=== PATIENT | male | born 1935 | race Caucasian/White ===

== ENCOUNTER 2022-07-24 02:02 | Outpatient (CLI) | payer MEDICARE, BC, SELFPAY | END 2022-07-24 02:03 | disposition home or self-care (01) | LOC: AMB 23:47 | PROVIDERS: PCP Surgery; Visit Provider Family Medicine | DX: L76.22 Postprocedural hemorrhage of skin and subcutaneous tissue following other procedure (principal) | CPT/HCPCS: A0425; A0427 ==

== ENCOUNTER 2022-07-24 02:33 | Emergency (ER) | payer MEDICARE, BC, SELFPAY ==
[2022-07-24 03:15] VITALS: BP 145/77
[2022-07-24 03:19] VITALS: BP 148/94; RESP 20; TEMP 36.2; BMI 23.3
[2022-07-24 03:20] VITALS: BP 154/66; PULSE 76; RESP 16; O2SAT 98
[2022-07-24 03:40] VITALS: BP 158/74; PULSE 80; RESP 16; O2SAT 98
--- NOTE | 2022-07-24 03:52 | ED.WOUNDLAC ---
HPI - Wound/Laceration General Chief Complaint: Laceration/Wound Stated Complaint: Bleeding Time Seen by Provider: 07/24/22 03:16 Source: patient and EMS Mode of arrival: EMS History of Present Illness HPI narrative: Patient underwent skin cancer resection less than 24 hours ago, called EMS due to severe bleeding. Patient is anticoagulated on Coumadin. Wound is on his back, pumping large amounts of blood. Soaking through the dressing, EMS not able to get bleeding contained at the scene. He did not note any dizziness, lightheadedness or chest pain. No new falls, trauma or injury. Past medical history, surgical history, meds and allergies are reviewed from EMR. Surgery was done at [facility] per his report. He does have some paperwork from the surgeon. Socially lives independently with no assistive devices. No intoxication. ROS is negative for other generalized, hematological, musculoskeletal or skin concerns today Related Data Home Medications Medication Instructions Recorded Confirmed allopurinol 100 mg tablet mg 07/24/22 atorvastatin 40 mg tablet mg 07/24/22 glipizide 10 mg tablet, extended mg PO 07/24/22 release 24 hr hydrochlorothiazide 12.5 mg tablet mg 07/24/22 lisinopril 20 mg tablet mg 07/24/22 metformin 1,000 mg tablet mg 07/24/22 metoprolol succinate 25 mg mg PO 07/24/22 tablet,extended release 24 hr warfarin 3 mg tablet mg 07/24/22 Previous Rx's Medication Instructions Recorded cephalexin 500 mg capsule 500 mg PO Q8H #21 caps 07/24/22 Allergies Allergy/AdvReac Type Severity Reaction Status Date / Time No Known Drug Allergies Allergy Verified 07/24/22 03:29 PFSH PFS Social History Smoking Status: Never smoker Do you use any of these nicotine containing products: None Second hand tobacco smoke exposure: No How often do you have a drink containing alcohol: never AUDIT-C Alcohol total score: 0 Non-prescribed substance use: denies use service: No Exam Const: Vital Signs, click to edit/add: Vital Signs - 24 hr 07/24/22 03:19 07/24/22 03:38 Temperature 97.2 F L Respiratory Rate 20 20 Blood Pressure [Le ft Forearm] 148/94 H 142/93 H Oxygen Delivery Me thod Room Air Room Air Common normals: no apparent distress General appearance: cooperative Other: Significant bleeding, active noted from right upper back. Okay the dressings, normal mental status with no pallor. HENMT: Common normals: normocephalic and head/scalp atraumatic Head and scalp: normocephalic and atraumatic Resp: Common normals: normal respiratory effort and clear to auscultation bilaterally Effort & inspection: able to speak in complete sentences Auscultation: clear to auscultation bilaterally Cardio: Common normals: regular rate, regular rhythm and peripheral pulses 2+ throughout Rate: regular rate Rhythm: regular rhythm Peripheral pulses: pulses 2+ throughout Back & Pelvis: Other: 8 cm wide by a 12 cm long bandages covering right scapular border. These are completely soaked and there is warm blood draining down these are removed as we attempt to locate the source of the bleeding. It is quickly found along the 8 cm linear surgical incision. It is located at about the 3 cm tanya from the left upper aspect. We applied direct pressure while we planned our mode of repair. There is significant underlying hematoma as well. Extremity: Common normals: normal capillary refill Neuro: Motor exam: no movement abnormalities noted Psych: Attitude: engaged Mood and affect: euthymic mood Judgement: judgment good Skin: Narrative: Other than the bleeding surgical incision on the right scapula, no other areas of injury, bruising or abnormality noted. Course Vital Signs Vital signs: Initial Vital Signs Temperature 97.2 F L 07/24/22 03:19 Temperature Source Temporal Artery Scan 07/24/22 03:19 Pulse Rhythm 07/24/22 03:19 Respiratory Rate 20 07/24/22 03:19 Blood Pressure 148/94 H 07/24/22 03:19 Blood Pressure Mean 112 07/24/22 03:19 Blood Pressure Position Standing 07/24/22 03:19 Oxygen Delivery Method 07/24/22 03:19 Vital Signs Temperature 97.2 F L 07/24/22 03:19 Respiratory Rate 20 07/24/22 03:19 Blood Pressure 148/94 H 07/24/22 03:19 Oxygen Delivery Method 07/24/22 03:19 Temperature 97.2 F L 07/24/22 03:19 Respiratory Rate 20 07/24/22 03:38 Blood Pressure 142/93 H 07/24/22 03:38 Oxygen Delivery Method 07/24/22 03:38 MDM - Wound/Laceration MDM Narrative Medical decision making narrative: Procedure: Control of surgical bleeding: Total critical care time 45 minutes: Within about 5 minutes, we were able to low localize the area of bleeding to about 3 cm from the left side of the surgical incision on the right upper scapula border. It appears arterial with a pulse of lluvia shooting nature, small-vessel. Area around the wound was injected with 3 mL of 1% lidocaine for anesthesia and then using 0 0 nylon suture, with some difficulty, 2 [id number] stitches were placed over the area of bleeding with good hemostasis. A 3rd stitch with 3-0 nylon was then placed specifically over the arterial spot for further reinforcement. This was watched for about 10 minutes with no expansion of the hematoma or further signs of bleeding, was gently cleansed and then covered with a pressure dressing and an Tor bandage around the chest and observed for 1 hour. Recheck: 430: No signs of rebleeding. Back was extensively cleansed, no expanding hematoma. Steri-Strips were reapplied similarly to how the surgeon had originally dressed the wound. ABD and tape were applied. Tor wrap reapplied. Discussed risks and benefits of antibiotics with patient, I am sensing some cognitive impairment, this will be a difficult area for him to monitor over the weekend. Benefit of antibiotic outweighs risk. Wound care and follow-up planned extensively discussed and written for patient. Discharge Plan Discharge Clinical Impression: Surgical complication Patient Disposition: Home w/ Parent or Adult Condition: Improved Instructions: Postoperative Bleeding (ED) Additional Instructions: The bleeding occurred from an artery about 3 cm from the left edge of your surgical incision. This looks like a small artery had come loose from its stitch and was causing sudden active bleeding. Were able to get a few large, quick figure of 8 stitches into area of bleeding and this worked well to control things. There is some bleeding underneath the incision, a small hematoma. We applied a pressure dressing and an Tro wrap around your chest to keep this from expanding. When we recheck done things after an hour, there were no signs of rebleeding. The extra stitches will need to be removed in the surgeon's office, not at home. Because of the hematoma, your wound is at increased risk of infection. I would like to start you on Keflex and have you make an appointment early next week with your surgeon to recheck things. Call her office 1st thing in the morning and tell her that you had an arterial bleeding complication, additional stitches needed to be placed and you are advised to have this rechecked. Let her know that we did start antibiotics. I would like for you to leave our dressing in place for 48 hours. Try to wear the Tor bandage or at least 8 hours. We discussed that since you want to go to a wake this afternoon, it would be best if you took the Tor wrap off after the wake. You may continue taking your Coumadin and all other medications as prescribed. Please come back to the emergency department if bleeding restarts. No strenuous activity for the next 48 hours, then you may resume all typical activity. Activity Level: Activity as Tolerated Discharge Diet: Regular Prescriptions: New cephalexin 500 mg capsule 500 mg PO Q8H Qty: 21 0RF No Action atorvastatin 40 mg tablet Label Comments: TAKE ONE TABLET BY MOUTH ONE TIME DAILY with evening meal. glipizide 10 mg tablet extended release 24hr PO Label Comments: TAKE ONE TABLET BY MOUTH TWICE DAILY WITH MEALS lisinopril 20 mg tablet Label Comments: TAKE ONE TABLET BY MOUTH ONE TIME DAILY allopurinol 100 mg tablet Label Comments: TAKE ONE TABLET BY MOUTH ONE TIME DAILY warfarin 3 mg tablet Label Comments: TAKE TWO TABLETS (6MG) BY MOUTH DAILY IN THE EVENING OR DIRECTED. metformin 1,000 mg tablet Label Comments: TAKE 1.5 TABLETS BY MOUTH EACH MORNING AND 1 TABLET IN THE EVENING. metoprolol succinate 25 mg tablet extended release 24 hr PO Label Comments: TAKE ONE TABLET BY MOUTH ONE TIME DAILY hydrochlorothiazide 12.5 mg tablet Label Comments: TAKE ONE TABLET BY MOUTH ONE TIME DAILY Follow Up/Referrals: Facundo Norman MD [Primary Care Provider] - Stand Alone [facility] Inst[facility]
[2022-07-24 04:00] VITALS: BP 156/75; PULSE 73; RESP 16; O2SAT 97
[2022-07-24 04:40] VITALS: BP 166/75; PULSE 78; RESP 16; O2SAT 96
[2022-07-24] MEDS: cephALEXin 500 MG CAPSULE PO (04:46)
== END 2022-07-24 05:07 | disposition home or self-care (01) ==
PROVIDERS: Emergency Provider Family Medicine; PCP Surgery
DX: L76.21 Postprocedural hemorrhage of skin and subcutaneous tissue following a dermatologic procedure (principal)
CPT/HCPCS: 12002; 99282; 99283; 99291; A9270

== ENCOUNTER 2024-07-29 10:42 | Emergency (ER) | payer MEDICARE, BC, SELFPAY ==
[2024-07-29] VITALS (12 sets, daily range): BP systolic 113–145; BP diastolic 71–88; PULSE 70–91; RESP 18; TEMP 36.3; O2SAT 80–99; BMI 20.9
--- NOTE | 2024-07-29 11:03 | ED.SOB ---
HPI - SOB/Dyspnea General Time Seen by Provider: 11:03 Date Seen: 07/29/24 Chief Complaint: Shortness of Breath/Dyspnea Stated Complaint: SOB, chest tightness Time Seen by Provider: 07/29/24 11:00 Source: patient, family, RN notes reviewed and old records reviewed Mode of arrival: ambulatory Limitations: no limitations History of Present Illness HPI Narrative: 88-year-old male who comes in today with complaints of cough, runny nose, dry throat, occasional shortness of breath with exertion. He denies chest pain, nausea, vomiting, did have a couple of days of diarrhea but that is resolved, no abdominal pain. No swelling in the legs. Symptoms been going on for about a week. Related Data Home Medications ?Medication ?Instructions ?Recorded ?Confirmed allopurinol 100 mg tablet mg 07/24/22 05/02/24 atorvastatin 40 mg tablet mg 07/24/22 05/02/24 glipizide 10 mg tablet, extended mg PO 07/24/22 05/02/24 release 24 hr hydrochlorothiazide 12.5 mg tablet mg 07/24/22 05/02/24 lisinopril 20 mg tablet mg 07/24/22 05/02/24 metformin 1,000 mg tablet mg 07/24/22 05/02/24 metoprolol succinate 25 mg mg PO 07/24/22 05/02/24 tablet,extended release 24 hr warfarin 3 mg tablet mg 07/24/22 05/02/24 dapagliflozin propanediol 10 mg 10 mg PO DAILY 07/29/24 07/29/24 tablet (Farxiga) sitagliptin phosphate 100 mg 100 mg PO DAILY 07/29/24 07/29/24 tablet (Januvia) Previous Rx's ?Medication ?Instructions ?Recorded azithromycin 250 mg tablet 250 mg PO DAILY 4 days #4 tabs 07/29/24 cefpodoxime 200 mg tablet 200 mg PO BID #14 tabs 07/29/24 Allergies Allergy/AdvReac Type Severity Reaction Status Date / Time No Known Drug Allergies Allergy Verified 05/02/24 10:16 [facility] Medical History Skin cancer ?C44.90 - Unspecified malignant neoplasm of skin, unspecified (ICD-10) Postoperative external wound disruption ?T81.31XA - Disruption of external operation (surgical) wound, not elsewhere classified, initial encounter (ICD-10) Social History (Updated 08/18/22 @ 13:29 by Charlotte Chamberlain ~ [facility], [facility]) Narrative: former chewing tobacco user Smoking Status: Never smoker Do you use any of these nicotine containing products: None Second hand tobacco smoke exposure: No How often do you have a drink containing alcohol: never AUDIT-C Alcohol total score: 0 Non-prescribed substance use: denies use service: No Exam Narrative: Exam Narrative: General: Well-developed and well-nourished, no acute distress Head: Atraumatic and normocephalic Eyes: Pupils are equal reactive, extraocular motions intact, conjunctiva clear ENT: External nose and ears are normal, posterior pharynx without erythema or exudate Neck: No midline cervical tenderness, full spontaneous range of motion the neck, trachea midline, no adenopathy Heart: Regular rate and irregular rhythm, 3/6 murmur Lungs: Crackles on the left Abdomen: Soft, nontender, nondistended with active bowel sounds Musculoskeletal: No tenderness, deformity, or edema Neurologic: Awake, alert, and oriented x3, no gross focal neurologic deficits, cranial nerves intact as tested Psych: Mood and affect are appropriate Skin: No rashes Const: Vital Signs, click to edit/add: Vital Signs - 24 hr 07/29/24 10:51 07/29/24 11:04 07/29/24 11:05 Temperature 97.4 F L Pulse Rate 82 Pulse Rate [Pulse Oximeter] 83 Respiratory Rate 18 Blood Pressure 126/76 Blood Pressure [Le ft Upper Arm] 145/84 H Pulse Oximetry 95 95 Oxygen Delivery Me thod Room Air 07/29/24 11:15 07/29/24 11:30 07/29/24 11:32 Temperature Pulse Rate 86 91 87 Pulse Rate [Pulse Oximeter] Respiratory Rate Blood Pressure 113/71 Blood Pressure [Le ft Upper Arm] Pulse Oximetry 92 80 L 92 Oxygen Delivery Me thod Course Course ED Course: Reviewed prior primary care visit from May 2024 which was follow-up for diabetes, at that time hemoglobin A1c is 8.6, also noted patient has hypertension and continued on hydrochlorothiazide, lisinopril, and metoprolol. Patient presents today with main complaint of dry throat, but also notes cough, nasal congestion, little bit shortness of breath with exertion. No fevers, no known ill contacts. No leg swelling. On exam here, patient is likely stable with no hypoxia, no respiratory distress, trace crackles particularly on the left. Consider viral process, pneumonia, pulmonary edema. Labs and x-ray are ordered. Reevaluation(s) Time of Reevaluation #1: 11:56 Reevaluation #1: Labs ordered and independently interpreted by me as normal CBC, hemoglobin 9.1, this is decreased from his usual level of 13 in October of last year. Chest x-ray independently interpreted by me with question of some perihilar fullness on the left, right lung is clear, no prior for comparison. Lungs appear slightly hyperinflated EKG independently interpreted by me performed at 11:04 a.m. demonstrates sinus rhythm although computer interpretation indicates atrial flutter, rate 87, occasional PVCs, normal axis, QTC 435. No change from prior of August 2023 Time of Reevaluation #2: 12:06 Reevaluation #2: Labs independently interpreted by me with negative respiratory panel, magnesium slightly low at 1.4, basic metabolic panel with normal potassium, normal creatinine, glucose 436. Time of Reevaluation #3: 12:34 Reevaluation #3: CT scan of the chest independently interpreted by me demonstrates left lower lobe consolidation consistent with clinical exam crackles in this area and finding of pneumonia. Patient will be started on Rocephin and azithromycin the emergency department and discharged with cefpodoxime and azithromycin, follow-up with primary care. Updated patient and sister with findings and plan. Vital Signs Vital signs: Initial Vital Signs Temperature 97.4 F L 07/29/24 10:51 Temperature Source Temporal Artery Scan 07/29/24 10:51 Pulse Rate 83 07/29/24 10:51 Respiratory Rate 18 07/29/24 10:51 Blood Pressure 145/84 H 07/29/24 10:51 Blood Pressure Mean 104 07/29/24 10:51 Blood Pressure Position Supine 07/29/24 10:51 Pulse Oximetry 95 07/29/24 10:51 Oxygen Delivery Method Room Air 07/29/24 10:51 Vital Signs Temperature 97.4 F L 07/29/24 10:51 Pulse Rate 83 07/29/24 10:51 Respiratory Rate 18 07/29/24 10:51 Blood Pressure 145/84 H 07/29/24 10:51 Pulse Oximetry 95 07/29/24 10:51 Oxygen Delivery Method Room Air 07/29/24 10:51 Temperature 97.4 F L 07/29/24 10:51 Pulse Rate 87 07/29/24 11:32 Respiratory Rate 18 07/29/24 10:51 Blood Pressure 113/71 07/29/24 11:32 Pulse Oximetry 92 07/29/24 11:32 Oxygen Delivery Method Room Air 07/29/24 10:51 MDM - SOB/Dyspnea Lab Data Labs: Lab Results 07/29/24 07/29/24 07/29/24 Range/Units 11:32 12:15 Unknown WBC 7.56 (4.50-11.00) K/uL RBC 2.78 L (4.30-5.90) m/uL Hgb 9.1 L (13.5-17.5) gm/dL Hct 27.1 L (37.0-53.0) % MCV 98 (80-100) fL MCH 33 (26-34) pg MCHC 34 (32-36) gm/dL RDW Coeff of Cindy 14.1 (11.5-15.5) % Plt Count 230 (140-440) K/uL Neut % (Auto) 74.4 H (42.0-72.0) % Lymph % (Auto) 12.8 L (20-44) % [place] % (Auto) 10.1 (0.0-11.0) % Eos % (Auto) 1.1 (0.0-7.0) % Baso % (Auto) 0.5 (0.0-3.0) % Neut # (Auto) 5.60 (1.7-7.0) K/uL Lymph # (Auto) 1.00 (0.90-2.90) K/uL [place] # (Auto) 0.80 (0.00-0.90) K/UL Eos # (Auto) 0.08 (0.00-0.50) K/uL Baso # (Auto) 0.04 (0.00-0.30) K/uL Abs Immat Gran (auto) 0.08 (0.00-0.30) K/uL Imm/Tot Granulo (auto) 1.1 % Sodium 130 L (135-149) mmol/L Potassium 4.0 (3.6-5.1) mmol/L Chloride 98 (96-114) mmol/L Carbon Dioxide 28 (20-32) mmol/L Anion Gap 4 L (7-15) mEq/L BUN 27 (7-30) mg/dL Creatinine 0.8 (0.5-1.5) mg/dL Estimated Creat Clear 49.14 Estimated GFR 85 ml/min Glucose 436 H* (60-115) mg/dL Calcium 8.3 L (8.4-10.6) mg/dL Magnesium 1.4 L (1.5-2.6) mg/dL NT-Pro-B Natriuret Pep 1390 pg/mL SARS-CoV-2 (PCR) Negative SARS-CoV-2 (Negative) Influenza Type A (PCR) Negative PCR FLU A (Negative) Influenza Type B (PCR) Negative PCR FLU B (Negative) RSV (PCR) Negative PCR RSV (Negative) Lab Acknowledgement Test Added Discharge Plan Discharge Clinical Impression: Community acquired pneumonia, Hyperglycemia due to type 2 diabetes mellitus Patient Disposition: Home w/ Parent or Adult Condition: Stable Instructions: Community Acquired Pneumonia (ED) Additional Instructions: Take antibiotics as prescribed starting tomorrow morning Follow-up with your primary care doctor in 7-10 days Activity Level: Activity as Tolerated Discharge Diet: Regular Prescriptions: New cefpodoxime 200 mg tablet 200 mg PO BID Qty: 14 0RF Rx Instructions: must administer with a meal/food azithromycin 250 mg tablet 250 mg PO DAILY 4 Days Qty: 4 0RF Rx Instructions: Start on July 30 No Action dapagliflozin propanediol [Farxiga] 10 mg tablet 10 mg PO DAILY Januvia 100 mg tablet 100 mg PO DAILY atorvastatin 40 mg tablet Patient Comments: TAKE ONE TABLET BY MOUTH ONE TIME DAILY with evening meal. glipizide 10 mg tablet extended release 24hr PO Patient Comments: TAKE ONE TABLET BY MOUTH TWICE DAILY WITH MEALS lisinopril 20 mg tablet Patient Comments: TAKE ONE TABLET BY MOUTH ONE TIME DAILY allopurinol 100 mg tablet Patient Comments: TAKE ONE TABLET BY MOUTH ONE TIME DAILY warfarin 3 mg tablet Patient Comments: TAKE TWO TABLETS (6MG) BY MOUTH DAILY IN THE EVENING OR DIRECTED. metformin 1,000 mg tablet Patient Comments: TAKE 1.5 TABLETS BY MOUTH EACH MORNING AND 1 TABLET IN THE EVENING. metoprolol succinate 25 mg tablet extended release 24 hr PO Patient Comments: TAKE ONE TABLET BY MOUTH ONE TIME DAILY hydrochlorothiazide 12.5 mg tablet Patient Comments: TAKE ONE TABLET BY MOUTH ONE TIME DAILY Follow Up/Referrals: Facundo Norman MD [Primary Care Provider] - Stand Alone Forms: [id number] Info Instructions
--- NOTE | 2024-07-29 11:18 | CRLHL7_ITS ---
For Patients: As a result of the Century Cures Act, medical imaging exams and procedure reports are released immediately into your electronic medical record. You may view this report before your referring provider. If you have questions, please contact your health care provider. INDICATION: Cough/dyspnea TECHNIQUE: Chest 2 views. COMPARISON: None. FINDINGS: Cardiovascular and mediastinum: Heart size is normal. Aorta is tortuous. Lungs and pleural spaces: No consolidation. No pneumothorax or pleural effusion. Bones and soft tissues: No significant findings. IMPRESSION: No consolidation. Dictated by Tabitha Seymour MD @ 07/29/2024 12:09:04 PM (Electronically Signed)
[2024-07-29 11:42] LABS: Basophils Absolute Auto 0.04 K/uL (0.00-0.30); Basophils Percent Auto 0.5 % (0.0-3.0); Eosinophils Absolute Auto 0.08 K/uL (0.00-0.50); Eosinophils Percent Auto 1.1 % (0.0-7.0); Hematocrit 27.1 % (37.0-53.0); Hemoglobin* 9.1 gm/dL (13.5-17.5); Immature Granulocytes Abs Auto 0.08 K/uL (0.00-0.30); Immature Granulocytes Pct Auto 1.1 %; Lymphocytes Percent Auto 12.8 % (20-44); Mean Corpuscular HGB Conc 34 gm/dL (32-36); Mean Corpuscular Hemoglobin 33 pg (26-34); Mean Corpuscular Volume 98 fL (80-100); Monocytes Percent Auto 10.1 % (0.0-11.0); Neutrophils Percent Auto 74.4 % (42.0-72.0); Platelet Count* 230 K/uL (140-440); RDW Coefficient of Variation % 14.1 % (11.5-15.5); Red Blood Count 2.78 m/uL (4.30-5.90); White Blood Count* 7.56 K/uL (4.50-11.00)
[2024-07-29 11:48] LABS: Slide Review Reflex No
[2024-07-29 11:51] LABS: Chloride* 98 mmol/L (96-114); Sodium* 130 mmol/L (135-149)
[2024-07-29 11:54] LABS: Anion Gap 4 mEq/L (7-15); Blood Urea Nitrogen* 27 mg/dL (7-30); Carbon Dioxide* 28 mmol/L (20-32); Creatinine* 0.8 mg/dL (0.5-1.5); Est. Creatinine Clearance* 49.14; Estimated Glomerular Filt Rate 85 ml/min
[2024-07-29 11:55] LABS: Calcium* 8.3 mg/dL (8.4-10.6); Magnesium* 1.4 mg/dL (1.5-2.6)
[2024-07-29 11:58] LABS: PCR FLU A Negative PCR FLU A (Negative); PCR FLU B Negative PCR FLU B (Negative); PCR RSV Negative PCR RSV (Negative); SARS PCR* Negative SARS-CoV-2 (Negative)
[2024-07-29 12:07] LABS: Glucose* 436 mg/dL (60-115); NT Pro B Type NatriureticPept* 1390 pg/mL
--- NOTE | 2024-07-29 12:14 | CRLHL7_ITS ---
For Patients: As a result of the Century Cures Act, medical imaging exams and procedure reports are released immediately into your electronic medical record. You may view this report before your referring provider. If you have questions, please contact your health care provider. Indication: Cough, shortness of breath. Technique: CT of the chest was performed without contrast. Comparison: Same-day chest radiographs. Findings: Lungs and pleura: Focal consolidation along the posteromedial aspect of the left lower lobe with mild surrounding patchy ground-glass opacities. Scattered calcified pleural plaques. No pleural effusion or pneumothorax. Heart and great vessels: The heart is normal in size. No pericardial effusion. Aorta and pulmonary artery are normal in caliber. Mild atherosclerotic aortic and moderate coronary artery atherosclerotic calcifications. Thyroid and mediastinum: Thyroid is normal. No mediastinal lymphadenopathy by size criteria. Fluid attenuation structure interposed between the aorta and SVC measuring 2.3 by 1.8 cm, likely a pericardial recess. Chest wall: Unremarkable. Visualized upper abdomen: Cholelithiasis without pericholecystic inflammatory change. Bones: Multilevel degenerative disc disease. Impression: 1. Left lower lobe consolidation concerning for pneumonia. Recommend radiographic follow-up in 4-6 weeks to document resolution. 2. Cholelithiasis. Please note that all CT scans at this facility use dose modulation, iterative reconstruction, and/or weight-based dosing when appropriate to reduce radiation dose to as low as reasonably achievable. Dictated by Chata Parmar MD @ 07/29/2024 12:57:19 PM (Electronically Signed)
[2024-07-29 12:46] LABS: Prothrombin Time 60.8 Seconds
[2024-07-29 12:47] LABS: INR 6.29 (0.91-1.10)
[2024-07-29] MEDS: cefTRIAXone 2 GM in 0.9 % SODIUM CHLORIDE Mini-bag 100 ML IVPB (12:47)
[2024-07-29] MEDS: AZITHROMYCIN 250 MG TABLET 500 MG PO (12:48)
== END 2024-07-29 13:39 | disposition home or self-care (01) ==
PROVIDERS: Emergency Provider Family Medicine; PCP Surgery
DX: J18.9 Pneumonia, unspecified organism (principal); E11.65 Type 2 diabetes mellitus with hyperglycemia
CPT/HCPCS: 36415; 71046; 71250; 80048; 83735; 83880; 85025; 85610; 87631; 93005; 96365; 99284; 99285; A9270; J0696